=== PATIENT | male | born 1995 | race African-American/Black ===

== ENCOUNTER 2023-03-20 02:43 | Emergency (ER) | payer MEDICAID ==
[~2023-03-20] VITALS: Ht 195.6 cm; Wt 77.0 kg
[2023-03-20 02:45] VITALS: BP 108/62
[2023-03-20] MEDS ORDERED: ACETAMINOPHEN 325MG TABLET PO ONE (03:00)
== END 2023-03-20 03:10 | disposition home or self-care (01) ==
LOC: ER 02:43
DX: M79.672 Pain in left foot (principal); M79.671 Pain in right foot; Z59.00 Homelessness unspecified; Z98.890 Other specified postprocedural states; Z86.59 Personal history of other mental and behavioral disorders
CPT/HCPCS: 99283